=== PATIENT | male | born 1960 | race Caucasian/White ===

== ENCOUNTER 2023-02-16 15:00 | Emergency (ER) | payer OTHER ==
[~2023-02-16] VITALS: Ht 177.8 cm; Wt 92.5 kg
[~2023-02-16 15:00] MED LIST: DIABETES MED; HTN MED; HYDACE5 PO; METF500 PO; [UNRECOGNIZED DRUG - REMARK]; [UNRECOGNIZED DRUG - REMARK]; [UNRECOGNIZED DRUG - REMARK]
[2023-02-16] MEDS ORDERED: Norco 10-325 T1 EACH PO (15:21)
[2023-02-16] MEDS ORDERED: DULOXETINE HCL60 M1 PO (15:22)
[2023-02-16] MEDS ORDERED: BASAGLAR K100 UNIT/3 SC (15:23)
[2023-02-16] MEDS ORDERED: ATORVASTATIN CA20 MG PO (15:24)
[2023-02-16] MEDS ORDERED: JARDIANCE25 MG PO (15:24)
[2023-02-16] MEDS ORDERED: NOVOLOG FL100 UNIT/3 SC (16:13)
[2023-02-16] MEDS ORDERED: NEURONTIN300 MG PO (16:14)
[2023-02-16] MEDS ORDERED: FAMO20 PO (16:15)
[2023-02-16] MEDS ORDERED: PANTOPRAZOLE SO40 M2 PO (16:15)
[2023-02-16] MEDS ORDERED: MULVITA PO (16:16)
[2023-02-16] MEDS ORDERED: LISI20 PO (16:16)
[2023-02-16] MEDS ORDERED: DOCU100 PO (16:18)
[2023-02-16] MEDS ORDERED: FLUTICASONE PRO16 GM (16:19)
[2023-02-16] MEDS ORDERED: ZYRTEC10 M2 PO (16:19)
[2023-02-16] MEDS ORDERED: TAMSULOSIN HCL0.4 M1 PO (16:20)
[2023-02-16 16:23] LABS: BASOPHILS ABSOLUTE AUTO 0.02 K/mm3 (0.00-0.23); BASOPHILS PERCENT AUTO 0 % (0-2); EOSINOPHILS PERCENT AUTO 0 % (0-6); Hematocrit 45.3 % (37.0-53.0); Hemoglobin 15.3 g/dL (13.5-17.5); IMMATURE GRAN ABSOLUTE AUTO 0.07 K/mm3 (0.00-0.10); IMMATURE GRAN PERCENT AUTO 1 % (0-1); LYMPHOCYTES PERCENT AUTO 3 % (21-46); MONOCYTES ABSOLUTE AUTO 0.61 K/mm3 (0.16-1.47); MONOCYTES PERCENT AUTO 5 % (4-13); Mean Corpuscular HGB Conc 33.8 g/dL (31.5-36.5); Mean Corpuscular Volume 86 fL (80-100); Mean Platelet Volume 9.8 fL (9.1-12.4); NEUTROPHILS ABSOLUTE AUTO 11.65 K/mm3 (1.96-9.15); NEUTROPHILS PERCENT AUTO 91 % (41-73); Platelet Count 259 K/mm3 (150-400); RDW Coefficient Variation 12.6 % (11.7-14.2); RDW Standard Deviation 39.5 fL (35.1-46.3); Red Blood Cell Count 5.27 M/mm3 (4.30-5.90); White Blood Cell Count 12.75 K/mm3 (4.00-11.30)
[2023-02-16 16:51] LABS: Albumin, Blood 3.6 g/dL (3.4-5.0); Albumin/Globulin Ratio 1.1 (0.8-1.8); Bilirubin, Total 0.8 mg/dL (0.1-1.0); Bun/Creatinine Ratio 27.3 (12.0-20.0); Calcium, Blood 8.4 mg/dL (8.5-10.1); Creatinine, Blood 1.43 mg/dL (0.60-1.20); Globulin, Blood 3.3 g/dL (2.2-4.0); Potassium, Blood 4.4 mmol/L (3.5-5.5); Total Protein, Blood 6.9 g/dL (6.4-8.2)
[2023-02-16 17:30] VITALS: BP 118/96
== END 2023-02-16 17:57 | disposition home or self-care (01) ==
LOC: ER 15:00
PROVIDERS: Emergency Medicine
DX: Z51.11 Encounter for antineoplastic chemotherapy (principal); R07.9 Chest pain, unspecified; C85.90 Non-Hodgkin lymphoma, unspecified, unspecified site; Z88.8 Allergy status to other drugs, medicaments and biological substances; Z79.4 Long term (current) use of insulin; Z79.899 Other long term (current) drug therapy; E11.9 Type 2 diabetes mellitus without complications; I10 Essential (primary) hypertension; K21.9 Gastro-esophageal reflux disease without esophagitis; Z98.890 Other specified postprocedural states
CPT/HCPCS: 71045; 80053; 84484; 85025; 93005; 93010; 96361; 96374; 99285-25; J2405; J7030

== ENCOUNTER 2023-05-06 13:46 | Emergency (ER) | payer OTHER ==
[~2023-05-06] VITALS: Ht 177.8 cm; Wt 83.9 kg
[~2023-05-06 13:46] MED LIST changes: +ATORVASTATIN CA20 MG PO; +BASAGLAR K100 UNIT/3 SC; +DOCU100 PO; +DULOXETINE HCL60 M1 PO; +FAMO20 PO; +FLUTICASONE PRO16 GM; +JARDIANCE25 MG PO; +LISI20 PO; +MULVITA PO; +NEURONTIN300 MG PO; +NOVOLOG FL100 UNIT/3 SC; +Norco 10-325 T1 EACH PO; +PANTOPRAZOLE SO40 M2 PO; +TAMSULOSIN HCL0.4 M1 PO; +ZYRTEC10 M2 PO
[2023-05-06 14:18] LABS: BASOPHILS ABSOLUTE AUTO 0.04 K/mm3 (0.00-0.23); BASOPHILS PERCENT AUTO 1 % (0-2); EOSINOPHILS PERCENT AUTO 2 % (0-6); Hematocrit 43.4 % (37.0-53.0); Hemoglobin 14.9 g/dL (13.5-17.5); IMMATURE GRAN ABSOLUTE AUTO 0.05 K/mm3 (0.00-0.10); IMMATURE GRAN PERCENT AUTO 1 % (0-1); LYMPHOCYTES ABSOLUTE AUTO 1.02 K/mm3 (0.84-5.20); LYMPHOCYTES PERCENT AUTO 22 % (21-46); MONOCYTES ABSOLUTE AUTO 0.55 K/mm3 (0.16-1.47); MONOCYTES PERCENT AUTO 12 % (4-13); Mean Corpuscular HGB 28.9 pg (26.0-34.0); Mean Corpuscular HGB Conc 34.3 g/dL (31.5-36.5); Mean Corpuscular Volume 84 fL (80-100); Mean Platelet Volume 9.2 fL (9.1-12.4); NEUTROPHILS ABSOLUTE AUTO 2.97 K/mm3 (1.96-9.15); NEUTROPHILS PERCENT AUTO 63 % (41-73); Platelet Count 245 K/mm3 (150-400); RDW Coefficient Variation 12.8 % (11.7-14.2); RDW Standard Deviation 39.4 fL (35.1-46.3); Red Blood Cell Count 5.15 M/mm3 (4.30-5.90); White Blood Cell Count 4.73 K/mm3 (4.00-11.30)
[2023-05-06 14:36] LABS: Albumin, Blood 3.6 g/dL (3.4-5.0); Albumin/Globulin Ratio 0.9 (0.8-1.8); Bilirubin, Total 0.8 mg/dL (0.1-1.0); Bun/Creatinine Ratio 15.9 (12.0-20.0); Calcium, Blood 9.3 mg/dL (8.5-10.1); Creatinine, Blood 0.88 mg/dL (0.60-1.20); Globulin, Blood 3.9 g/dL (2.2-4.0); Potassium, Blood 4.6 mmol/L (3.5-5.5); Total Protein, Blood 7.5 g/dL (6.4-8.2)
[2023-05-06 19:45] VITALS: BP 121/85
[2023-05-06 20:18] LABS: Source, Urine Clean Catch
[2023-05-06 20:23] LABS: Bilirubin, Urine Neg (Neg); Blood, Urine Neg (Neg); Glucose Qualitative, Urine 2+ (Neg); Ketones, Urine 3+ (Neg); Leukocyte Esterase, Urine Neg (Neg); Nitrite, Urine Neg (Neg); Protein, Urine 1+ (Neg); Urobilinogen, Urine NORM (Normal)
[2023-05-06 20:33] LABS: Appearance, Urine Clear (Clear); Color, Urine Yellow (P-Yellow)
[2023-05-06] MEDS ORDERED: ONDA4 PO (23:30)
[2023-05-06] MEDS ORDERED: MECL25 PO (23:30)
[2023-05-24] MEDS ORDERED: Norco 10-325 T1 EACH PO (20:50)
[2023-05-24] MEDS ORDERED: PRED FORTE5 ML RIGHTEYE (20:52)
[2023-05-31] MEDS ORDERED: AMOCLA875 PO (13:49)
[2023-05-31] MEDS ORDERED: VALA500 PO (13:50)
[2023-05-31] MEDS ORDERED: DRON5 PO (13:50)
== END 2023-05-06 23:45 | disposition home or self-care (01) ==
LOC: ER 13:46
PROVIDERS: Student in an Organized Health Care Education/Training Program
DX: R42 Dizziness and giddiness (principal); R11.2 Nausea with vomiting, unspecified; C85.90 Non-Hodgkin lymphoma, unspecified, unspecified site; Z88.8 Allergy status to other drugs, medicaments and biological substances; Z79.899 Other long term (current) drug therapy; Z79.4 Long term (current) use of insulin; Z79.891 Long term (current) use of opiate analgesic; E11.9 Type 2 diabetes mellitus without complications; I10 Essential (primary) hypertension; K21.9 Gastro-esophageal reflux disease without esophagitis
CPT/HCPCS: 70450; 70496; 70498; 80053; 83690; 85025; 93005; 93010; 96374; 99285-25; A9270; J2765; Q9967

== ENCOUNTER → 2023-05-09 | Outpatient (CLI) | payer OTHER ==
[~2023-05-09] MED LIST changes: +MECL25 PO; +ONDA4 PO
[2023-05-09 12:02] LABS: BASOPHILS ABSOLUTE AUTO 0.05 K/mm3 (0.00-0.23); BASOPHILS PERCENT AUTO 1 % (0-2); EOSINOPHILS ABSOLUTE AUTO 0.14 K/mm3 (0.00-0.68); EOSINOPHILS PERCENT AUTO 3 % (0-6); Hemoglobin 14.5 g/dL (13.5-17.5); IMMATURE GRAN PERCENT AUTO 2 % (0-1); LYMPHOCYTES ABSOLUTE AUTO 0.56 K/mm3 (0.84-5.20); LYMPHOCYTES PERCENT AUTO 12 % (21-46); MONOCYTES ABSOLUTE AUTO 0.52 K/mm3 (0.16-1.47); MONOCYTES PERCENT AUTO 12 % (4-13); Mean Corpuscular HGB 28.7 pg (26.0-34.0); Mean Corpuscular HGB Conc 34.5 g/dL (31.5-36.5); Mean Corpuscular Volume 83 fL (80-100); NEUTROPHILS ABSOLUTE AUTO 3.16 K/mm3 (1.96-9.15); NEUTROPHILS PERCENT AUTO 70 % (41-73); Platelet Count 318 K/mm3 (150-400); RDW Coefficient Variation 12.6 % (11.7-14.2); RDW Standard Deviation 38.1 fL (35.1-46.3); Red Blood Cell Count 5.06 M/mm3 (4.30-5.90); White Blood Cell Count 4.53 K/mm3 (4.00-11.30)
[2023-05-09 13:52] LABS: Albumin, Blood 3.4 g/dL (3.4-5.0); Bilirubin, Total 0.5 mg/dL (0.1-1.0); Bun/Creatinine Ratio 17.1 (12.0-20.0); Calcium, Blood 9.3 mg/dL (8.5-10.1); Creatinine, Blood 1.05 mg/dL (0.60-1.20); Globulin, Blood 3.4 g/dL (2.2-4.0); Total Protein, Blood 6.8 g/dL (6.4-8.2)
== END ==
LOC: LAB 11:38 → LAB SHORT 11:38
PROVIDERS: Internal Medicine Hematology & Oncology
DX: C82.03 Follicular lymphoma grade I, intra-abdominal lymph nodes (principal); D48.3 Neoplasm of uncertain behavior of retroperitoneum
CPT/HCPCS: 80053; 85025

== ENCOUNTER 2023-05-24 14:20 | Inpatient (IN) | payer OTHER, BC ==
[~2023-05-24] VITALS: Ht 177.8 cm; Wt 77.0 kg
[2023-05-24 15:01] LABS: Hemoglobin 12.6 g/dL (13.5-17.5); Mean Corpuscular HGB 29.2 pg (26.0-34.0); Mean Corpuscular Volume 84 fL (80-100); Mean Platelet Volume 9.2 fL (9.1-12.4); Platelet Count 238 K/mm3 (150-400); RDW Coefficient Variation 12.9 % (11.7-14.2); Red Blood Cell Count 4.31 M/mm3 (4.30-5.90); White Blood Cell Count 3.78 K/mm3 (4.00-11.30)
[2023-05-24 15:10] LABS: Albumin, Blood 3.3 g/dL (3.4-5.0); Albumin/Globulin Ratio 1.4 (0.8-1.8); Bilirubin, Total 0.8 mg/dL (0.1-1.0); Bun/Creatinine Ratio 16.7 (12.0-20.0); Calcium, Blood 8.5 mg/dL (8.5-10.1); Creatinine, Blood 1.02 mg/dL (0.60-1.20); Globulin, Blood 2.4 g/dL (2.2-4.0); Magnesium, Blood 1.8 mg/dL (1.6-2.4); Potassium, Blood 4.1 mmol/L (3.5-5.5); Total Protein, Blood 5.7 g/dL (6.4-8.2)
[2023-05-24 15:44] LABS: BAND PERCENT MAN 12 % (0-8); BASOPHILS PERCENT MAN 0 % (0-2); EOSINOPHILS ABSOLUTE MAN 0.03 K/mm3 (0.00-0.68); EOSINOPHILS PERCENT MAN 1 % (0-6); LYMPHOCYTES ABSOLUTE MAN 0.26 K/mm3 (0.84-5.20); LYMPHOCYTES PERCENT MAN 7 % (21-46); MONOCYTES ABSOLUTE MAN 0.22 K/mm3 (0.16-1.47); MONOCYTES PERCENT MAN 6 % (4-13); MYELOCYTE ABSOLUTE MAN 0.03 K/mm3 (0.00-0.00); MYELOCYTE PERCENT MAN 1 % (0-0); NEUTROPHILS ABSOLUTE MAN 3.21 K/mm3 (1.96-9.15); SEG NEUTROPHILS PERCENT MAN 73 % (41-73); TOTAL CELLS COUNTED 100
[2023-05-24 15:45] LABS: Influenza A, PCR NEGATIVE (NEGATIVE); Influenza B, PCR NEGATIVE (NEGATIVE); Resp Syncytial Virus, PCR NEGATIVE (NEGATIVE); SARS-Cov-2 (COVID-19) PCR, MMC NEGATIVE (NEGATIVE)
[2023-05-24] MEDS ORDERED: Norco 10-325 T1 EACH PO ×2 (20:50)
[2023-05-24 20:52] VITALS: BP 103/67
[2023-05-24] MEDS ORDERED: PRED FORTE5 ML RIGHTEYE ×2 (20:52)
[2023-05-25 02:21] VITALS: BP 114/63
--- NOTE | 2023-05-25 04:47 | NUR ---
REPORT RECEIVED FROM ER AND THE VERIFIED A/O ANXIOUS PT WITH A HX OF FALLS. PT STATES HE WILL CALL AND NOT GET UP UNLESS WE ARE THERE, PT CONCERNED OF FALLING AND HAS A LOT INJURIES TO BODY. SO FAR VSS AND PT HASNT HAD ANY DIZZINESS, AMBULATES WITH MINIMAL ASSISTENCE AND HAS CALLED APPROPRIATLY. WILL CONT TO MONITOR
[2023-05-25 05:04] LABS: Hemoglobin 12.7 g/dL (13.5-17.5); Mean Corpuscular HGB 29.4 pg (26.0-34.0); Mean Corpuscular HGB Conc 34.3 g/dL (31.5-36.5); Mean Corpuscular Volume 86 fL (80-100); Mean Platelet Volume 9.4 fL (9.1-12.4); Platelet Count 208 K/mm3 (150-400); RDW Standard Deviation 40.2 fL (35.1-46.3); Red Blood Cell Count 4.32 M/mm3 (4.30-5.90); White Blood Cell Count 3.01 K/mm3 (4.00-11.30)
[2023-05-25 05:23] LABS: Bun/Creatinine Ratio 14.5 (12.0-20.0); Calcium, Blood 8.1 mg/dL (8.5-10.1); Creatinine, Blood 0.83 mg/dL (0.60-1.20)
[2023-05-25 05:55] LABS: BAND PERCENT MAN 1 % (0-8); BASOPHILS PERCENT MAN 0 % (0-2); EOSINOPHILS PERCENT MAN 0 % (0-6); LYMPHOCYTES PERCENT MAN 10 % (21-46); MONOCYTES ABSOLUTE MAN 0.39 K/mm3 (0.16-1.47); MONOCYTES PERCENT MAN 13 % (4-13); NEUTROPHILS ABSOLUTE MAN 2.31 K/mm3 (1.96-9.15); SEG NEUTROPHILS PERCENT MAN 76 % (41-73); TOTAL CELLS COUNTED 100
[2023-05-25 07:58] VITALS: BP 133/67
[2023-05-25 09:57] VITALS: BP 98/53
--- NOTE | 2023-05-25 15:11 | NUR ---
SHIFT SUMMARY PT FINALLY RESTING QUIETLY AT START OF SHIFT. ADMITTED FOR SYNCOPE WITH MULTIPLE FALLS AT HOME; PER REPORT, 25 IN PAST DAY OR SO. PT EASILY WOKE FOR CARE. SITTING UP TO EOB TO EAT BREAKFAST, BUT SPILLING IT ALL OVER FLOOR AND BED. LINENS AND GOWN CHANGED. PT LATER C/O FEELING WARM AND STARTED VOMITING; 300cc EMESIS. ZOFRAN GIVEN PER EMAR. DR ECHAVARRIA IN TO SEE PT PRIOR TO N/V EPISODE. ORTHO VS DONE; SEE CHART. PT/OT ORDERED AND ABLE TO AMBULATE IN HALLS WITHOUT DIFFICULTY. PT UP TO BTHRM SEVERAL TIMES TODAY WITH SBA FOR SAFETY. PT SITTING UP IN CHAIR AT BS WITH THERAPY, MARLA, BEFORE WANTING TO GO BACK TO BED. NO C/O PAIN. VSS, SEE CHART. IVF'S INFUSING PER EMAR. PT RESTING QUIETLY AT THIS TIME. CALL LT IN REACH. BED ALARM ON FOR SAFETY.
[2023-05-25 15:28] VITALS: BP 135/65
[2023-05-25 19:36] VITALS: BP 140/72
[2023-05-26] VITALS (9 sets, daily range): BP systolic 74–147; BP diastolic 51–82
--- NOTE | 2023-05-26 04:32 | NUR ---
SHIFT SUMMARY PT MUCH BETTER TODAY INDEPENDANT IN RM BUT STILL CALLS WHEN NEEDING TO STAND, PT UNDERSTANDS THERE IS A POSSIBILITY OF HIM FALLING BUT ITS UNLIKELY SINCE HE HAS BEEN HYDRATED WHILE HERE AND MONITORED FOR FALLS. PT STILL HAVING PAIN TO RIGHT EAR BUT DENIES WANTING OR NEEDING ANY PAIN MEDICATION. CONT TO MONITOR
--- NOTE | 2023-05-26 16:50 | NUR ---
SHIFT SUMMARY AMBULATING TO THE BATHROOM WITH SBA, NO SYNCOPAL EPISODES. ADVANCING WITH PHYSICAL THERAPY WELL PER NOTES. STATES HE WOULD LIKE TO RETURN HOME RATHER THAN TO REHAB. NO ACUTE EVENTS THIS SHIFT. WILL CONTINUE TO MONITOR
[2023-05-27] VITALS (11 sets, daily range): BP systolic 63–172; BP diastolic 45–85
--- NOTE | 2023-05-27 04:25 | NUR ---
SHIFT SUMMARY NICKO IS ALERT AND FULLY ORIENTED AT THE START OF THE SHIFT. HE IS PLEASANT AND COOPERATIVE WITH CARE. HE HAD NO ACUTE CHANGES OVER NIGHT. HE COMPLAINS OF RIGHT EAR PAIN AND WAS MEDICATED PER EMAR. PT HAD NO OTHER COMPLAINTS AND HE WAS INDEPENDENT IN HIS ROOM. PT RESTING IN BED AT LOWEST POSITION, WITH THE CALL LIGHT IN REACH.
[2023-05-27 05:02] LABS: Hematocrit 35.3 % (37.0-53.0); Hemoglobin 12.3 g/dL (13.5-17.5); Mean Corpuscular HGB Conc 34.8 g/dL (31.5-36.5); Mean Corpuscular Volume 83 fL (80-100); Mean Platelet Volume 9.2 fL (9.1-12.4); Platelet Count 215 K/mm3 (150-400); RDW Standard Deviation 39.1 fL (35.1-46.3); Red Blood Cell Count 4.24 M/mm3 (4.30-5.90); White Blood Cell Count 2.51 K/mm3 (4.00-11.30)
--- NOTE | 2023-05-27 05:23 | NUR ---
THIS GREASE AND TALLOW PUMPER HAS REVIEWED AND AGREES WITH ALL NOTES AND ASSESSMENTS BY HADLEY GIRON.
[2023-05-27 05:38] LABS: Calcium, Blood 8.6 mg/dL (8.5-10.1); Creatinine, Blood 0.71 mg/dL (0.60-1.20); Potassium, Blood 3.8 mmol/L (3.5-5.5)
--- NOTE | 2023-05-27 15:45 | NUR ---
PHYSICIAN CONTACT CALLED DR ECHAVARRIA REGARDING ORTHOSTATIC VITALS, ORDERED TO INCREASE RATE OF IV FLUIDS AND HOLD FLOMAX THIS PM. WILL CONTINUE TO MONITOR
--- NOTE | 2023-05-27 16:52 | NUR ---
SHIFT SUMMARY ORTHOSTATIC VITALS POSITIVE FOR CHANGES, SYMPTOMATIC, DOC AWARE. EPISODE OF DIARRHEA THIS SHIFT. POOR ORAL INTAKE, CHOKING ON FOOD AND PILLS IN AM, SPEECH CONSULT PLACED AND DIET DOWNGRADED. WILL CONTINUE TO MONITOR.
--- NOTE | 2023-05-27 23:08 | NUR ---
PT IS PLEASANT SITTING AT BEDSIDE A&O. PT HAS TELE IN PLACE NSR WITH NS@125 IN RIGHT AC, PT REPORTS RIGHT EAR PAIN 6/10 PRN GIVEN W/RELIEF, PT REPORTS SOME DIZZINESS WHEN CHANGING POSITIONS HAS +ORTHOSTATIC PRESSURES WITH ELEVATED HR THAT RESOLVES AT REST. PT AMBULATES W/ STANDBY ASSIT. CALL DUDLEY WITHIN REACH WILL CONTINUE TO MONITOR.
[2023-05-28] VITALS (13 sets, daily range): BP systolic 65–181; BP diastolic 54–114
[2023-05-28 05:05] LABS: Hematocrit 34.7 % (37.0-53.0); Hemoglobin 12.2 g/dL (13.5-17.5); Mean Corpuscular HGB 29.1 pg (26.0-34.0); Mean Corpuscular HGB Conc 35.2 g/dL (31.5-36.5); Mean Corpuscular Volume 83 fL (80-100); Mean Platelet Volume 9.7 fL (9.1-12.4); Platelet Count 250 K/mm3 (150-400); RDW Coefficient Variation 12.9 % (11.7-14.2); RDW Standard Deviation 38.4 fL (35.1-46.3); Red Blood Cell Count 4.19 M/mm3 (4.30-5.90)
[2023-05-28 05:33] LABS: Bun/Creatinine Ratio 11.8 (12.0-20.0); Calcium, Blood 8.4 mg/dL (8.5-10.1); Creatinine, Blood 0.68 mg/dL (0.60-1.20); Potassium, Blood 3.4 mmol/L (3.5-5.5)
--- NOTE | 2023-05-28 17:57 | NUR ---
SHIFT SUMMARY A&OX4, COOPERATIVE WITH CARE, [facility]. PATIENT COMPLAINED OF 7/10 PAIN TO R EAR, MEDICATED WITH TYLENOL. DENIED ANY CP/PRESSURE, SOB, HEADACHE, OR DIZZINESS THIS SHIFT. IV PATENT WIH FLUIDS RUNNING AT 125MLS/HR. ORTHOSTATIC BP'S HAVE SUBSTANTIAL SBP CHANGE. ENCOURAGING ORAL INTAKE TO INCREASE SBP. [facility] SOFT DIET, NO STRAWS, PILLS ON AT A TIME WITH APPLESAUCE. SBA WITH AMBULATION TO BATHROOM. PATIENT NOW RECEIVING MARINOL TO HELP WITH APPETITE AND NAUSEA. CURRENTLY UP FOR DINNER. CALL LIGHT WITHIN REACH.
[2023-05-29] VITALS (14 sets, daily range): BP systolic 68–175; BP diastolic 47–93
[2023-05-29 05:16] LABS: Hematocrit 34.5 % (37.0-53.0); Hemoglobin 12.1 g/dL (13.5-17.5); Mean Corpuscular HGB 29.4 pg (26.0-34.0); Mean Corpuscular HGB Conc 35.1 g/dL (31.5-36.5); Mean Corpuscular Volume 84 fL (80-100); Mean Platelet Volume 9.7 fL (9.1-12.4); Platelet Count 212 K/mm3 (150-400); RDW Standard Deviation 39.3 fL (35.1-46.3); Red Blood Cell Count 4.11 M/mm3 (4.30-5.90)
--- NOTE | 2023-05-29 05:45 | NUR ---
ASSUMED CARE OF PT AT 0400. THIS RN AGREES TO ISA BOOKER'S ASSESSMENT FINDINGS. PT RECIEVED TYLENOL FOR TOLERABLE RELIEF OF R.EAR PAIN. HE REPORTS R.CHEEK ITCHING AND RASH OBSERVED. LOTION PROVIDED AND PT REPORTED IMPROVEMENT. ENT TO BE CONSULTED POSSIBLY OUTPATIENT. ORTHOS CONTINUE TO BE (+) T/O ENTIRETY OF SHIFT. SIGNIFICANT BP DROPS NOTED W/SBP 60'S-70'S UPON STANDING (130'S-160'S LYING) AND HR TACHS UP TO 1TEENS FROM 60'S-80'S. NS INFUSES AT 125 ML/HR. NO ACUTE CHANGES, WCTM AND REPORT TO DAY RN.
[2023-05-29 05:56] LABS: Albumin, Blood 2.9 g/dL (3.4-5.0); Albumin/Globulin Ratio 1.3 (0.8-1.8); Bilirubin, Total 0.3 mg/dL (0.1-1.0); Calcium, Blood 8.2 mg/dL (8.5-10.1); Creatinine, Blood 0.6 mg/dL (0.60-1.20); Globulin, Blood 2.3 g/dL (2.2-4.0); Potassium, Blood 3.3 mmol/L (3.5-5.5); Total Protein, Blood 5.2 g/dL (6.4-8.2)
[2023-05-29 06:07] LABS: BASOPHILS ABSOLUTE MAN 0.05 K/mm3 (0.00-0.23); BASOPHILS PERCENT MAN 2 % (0-2); EOSINOPHILS ABSOLUTE MAN 0.02 K/mm3 (0.00-0.68); EOSINOPHILS PERCENT MAN 1 % (0-6); LYMPHOCYTES ABSOLUTE MAN 0.25 K/mm3 (0.84-5.20); LYMPHOCYTES PERCENT MAN 10 % (21-46); METAMYELOCYTE ABSOLUTE MAN 0.02 K/mm3 (0.00-0.00); METAMYELOCYTE PERCENT MAN 1 % (0-0); MONOCYTES ABSOLUTE MAN 0.25 K/mm3 (0.16-1.47); MONOCYTES PERCENT MAN 10 % (4-13); SEG NEUTROPHILS PERCENT MAN 76 % (41-73); TOTAL CELLS COUNTED 100
--- NOTE | 2023-05-29 15:35 | NUR ---
Brief supportive visit this afternoon. Pt resting in bed upon arrival receiving orthostatic B/P check by JOSE Del Castillo. Pt reports 5/10 pain in his ear. He reports pain worsens at night when air is more cool. Offered suggestions to assist with warms such as turning the thermostat up at night or warm compress if appropriate. Listened as Pt reports being and living at home with his . He reports no children. Pt reports plan to continue chemo therapy once infection has resolved. He reports losing his appetite shortly after chemo therapy and started having falls a week or two after losing his appetite. Pt reports the Marinol may be helping as he had more PO intake at lunch today. Continued supportive visit. Palliative Care will remain available
--- NOTE | 2023-05-29 16:13 | NUR ---
SHIFT SUMMARY PATIENT A&OX4, COOPERATIVE WITH CARE, FLAT AFFECT. COMPLAINED OF PAIN TO R EAR AND CHEEK. DR. JONES ATTEMPTED TO IRRIGATE THE EAR TO TRY AND REMOVE A PLUG OF DRAINAGE, BUT NOT MUCH WAS REMOVED PER HER REPORT. PATIENT DENIED HEADACHE, CP, DIZZINESS, OR SOB. APPETITE POOR. COMPLAINED OF N/V AFTER TRYING TO EAT, MEDICATED WITH ZOFRAN. PATIENT IS ALSO RECEIVING MARINOL. ORTHOSTATIC HYPOTENSION CONINUES. PARAMETERS OBTAINED FOR MIDODRINE - HOLD FOR SBP>90 WHEN SITTING OR STANDING. PALLIATIVE CARE TO HELP WITH ADVANCED CARE PLANNING. SPOKE WITH SEBASTIAN. NO ACUTE CHANGES THIS SHIFT. PATIENT IS CURRENLTY RESTING IN BED WITH CALL LIGHT IN REACH.
--- NOTE | 2023-05-29 18:24 | NUR ---
ASSUMED CARE OF PT, NO ACUTE CHANGES OCCURED DURING CARE. PT MAINTAINED A POSITION OF SAFETY WITH BED IN LOWEST POSITION AND LOCKED WITH CALL LIGHT WITHIN REACH.
--- NOTE | 2023-05-29 18:33 | NUR ---
THIS COURTROOM REPORTER HAS REVIEWED AND AGREES WITH NOTES AND EMAR DONE BY HADLEY HAIDER.
[2023-05-30] VITALS (13 sets, daily range): BP systolic 81–160; BP diastolic 55–90
--- NOTE | 2023-05-30 02:46 | NUR ---
A/O PT WITH FLAT AFFECT, COOPERATIVE AND CALLS WHEN NEEDING ASSISTENCE. HELP AMBULATE TO BATHROOM SEVERAL TIMES, PT SHOWED NO INSTABILITY OR RISK OF FALLING, WILL CONT TO MONITOR.
[2023-05-30 06:45] LABS: Bun/Creatinine Ratio 5.8 (12.0-20.0); Calcium, Blood 8.5 mg/dL (8.5-10.1); Creatinine, Blood 0.69 mg/dL (0.60-1.20); Potassium, Blood 3.4 mmol/L (3.5-5.5)
--- NOTE | 2023-05-30 14:06 | NUR ---
Pt sitting on edge of bed upon arrival with IMAGING SERVICES DIRECTOR recording orthostatic B/P. Pt reports 5/10 pain in his ear. Pt reports current pain regimen is managing his pain. Pt and IMAGING SERVICES DIRECTOR Magdalene reports Pt's appetite is poor today, taking in only 1 ensure shake and small sips of juice for the entire day. Pt not eating his meals. Pt's spouse Kelsie arrives to bedside. Discussed concerns regarding Pt's appetite. Kelsie reports Pt has had this issue in the past and was not strong enough to continue chemo. She reports Pt's drinks strawberry flavored pedialyte and like strawberry flavored items. Continued therapeutic visit. Pt agreeable for appetite stimulant adjustment to assist with appetite if appropriate. Spoke with Dr Horta and discussed case. Placed order for Marinol 5 mg PO BIDAC, D/C Marinol 2.5 mg Per V/O from Dr Horta. Placed Dietitian order to assist with nutrition. Palliative Care will remain available
[2023-05-31 03:44] VITALS: BP 133/70
--- NOTE | 2023-05-31 03:46 | NUR ---
SHIFT SUMMARY: PT IS ALERT AND ORIENTED. PT IS A STANDBY ASSIST WITH FWW. PT IS CALM AND COOPERATIVE WITH CARE. PT CALLS APPROPRIATELY. PT REPORTS PAIN IN HIS R. EAR, GAVE PRN NORCO. PT DENIES NAUSEA, VOMITING, AND SOB. PT SLEPT MUCH OF THE NIGHT WHEN NOT DISTURBED. NO ACUTE CHANGES OR COMPLICATIONS OVERNIGHT. BED IN LOW POSITION, CALL LIGHT WITHIN REACH. WILL REPORT TO DAY NURSE.
[2023-05-31 07:27] VITALS: BP 151/82
[2023-05-31 13:12] VITALS: BP 152/78
[2023-05-31] MEDS ORDERED: AMOCLA875 PO ×2 (13:49)
[2023-05-31] MEDS ORDERED: VALA500 PO ×2 (13:50)
[2023-05-31] MEDS ORDERED: DRON5 PO ×2 (13:50)
--- NOTE | 2023-05-31 14:22 | NUR ---
DISCHARGE HOME PT ESCORTED OUT VIA W/C ACCOMPANIED BY PROJECT SAFETY MANAGER. IV REMOVED WITH CANNULA INTACT. PRESSURE DRESSING APPLIED. REVIEWED DISCHARGE INSTRUCTIONS. ORDERS [facility]XED TO [facility] PER REQUEST. CONTINUE POC.
== END 2023-05-31 15:57 | disposition home health service (06) | DRG 312 ==
LOC: ER 14:20 → MEDS 14:21 → ENPENDDIS 05-31 15:51 → MEDS 05-31 15:57
PROVIDERS: Hospitalist; Internal Medicine; Nurse Practitioner Acute Care; Student in an Organized Health Care Education/Training Program; ADMIT Internal Medicine
DX: I95.1 Orthostatic hypotension (principal); C85.90 Non-Hodgkin lymphoma, unspecified, unspecified site; B02.8 Zoster with other complications; Z20.822 Contact with and (suspected) exposure to COVID-19; H60.91 Unspecified otitis externa, right ear; H83.01 Labyrinthitis, right ear; E86.0 Dehydration; R29.6 Repeated falls; R13.10 Dysphagia, unspecified; I10 Essential (primary) hypertension; D72.819 Decreased white blood cell count, unspecified; D64.9 Anemia, unspecified; N40.0 Benign prostatic hyperplasia without lower urinary tract symptoms; F32.A Depression, unspecified; E78.5 Hyperlipidemia, unspecified; K21.9 Gastro-esophageal reflux disease without esophagitis; G51.0 Bell's palsy; E11.42 Type 2 diabetes mellitus with diabetic polyneuropathy; Z88.8 Allergy status to other drugs, medicaments and biological substances; Z79.4 Long term (current) use of insulin; Z79.891 Long term (current) use of opiate analgesic; Z79.899 Other long term (current) drug therapy; Z98.890 Other specified postprocedural states
CPT/HCPCS: 0241U; 36415; 70450; 70486; 71046; 72125; 74230; 80048; 80053; 82947; 83735; 83880; 84484; 85025; 85027; 92526; 92610; 92611; 93005; 93010; 96360; 96361; 97110; 97116; 97162; 97165; 97530; 97535; 99285-25; A9270; J1650; J1815; J2405; J7030; Q0167

== ENCOUNTER 2023-08-29 14:30 | Day surgery (SDC) | payer OTHER ==
[~2023-08-29] VITALS: Ht 177.8 cm; Wt 80.0 kg
[~2023-08-29 14:30] MED LIST changes: +AMOCLA875 PO; +ATOR20 PO; -ATORVASTATIN CA20 MG PO; +DRON5 PO; +DULO60; -DULOXETINE HCL60 M1 PO; +Diflucan100 MG; +Durezol5 ML; +FLONASE ALLERG9.9 M2; -FLUTICASONE PRO16 GM; +GABA300; -LISI20 PO; +MELO7.5; +MUPIROCIN1 G1; -NEURONTIN300 MG PO; +NORVASC10 MG; +Ondansetron Odt8 MG; +PRED FORTE5 ML RIGHTEYE; +PRED20 PO; +TRAM50; +VALA500 PO; +Xylocaine5 M1; +ZESTRIL40 M1 PO
[2023-08-29 16:48] VITALS: BP 148/79
== END 2023-08-29 17:04 | disposition home or self-care (01) ==
LOC: ORSCSDS 14:30
PROVIDERS: Ophthalmology
PROC: 08RK3JZ Replacement of Left Lens with Synthetic Substitute, Percutaneous Approach (ICD-10-PCS; principal; 2023-08-29 16:00)
DX: E11.36 Type 2 diabetes mellitus with diabetic cataract (principal); H25.12 Age-related nuclear cataract, left eye; I10 Essential (primary) hypertension; K21.9 Gastro-esophageal reflux disease without esophagitis; Z79.4 Long term (current) use of insulin; Z79.899 Other long term (current) drug therapy
CPT/HCPCS: 82947; A9270; J2250; J3010; J3301; J7040; V2632

== ENCOUNTER → 2024-03-04 | Outpatient (CLI) | payer OTHER ==
[~2024-03-04] MED LIST changes: +Diflucan100 MG PO; +GABA300 PO; +GLIP5 PO; +LANTUS SOL100 UNIT/1; +LIDOCAINE VISCOUS PO; +MUPIROCIN2210; +ONDA8 PO
[2024-03-04 11:46] LABS: BASOPHILS ABSOLUTE AUTO 0.03 K/mm3 (0.00-0.23); BASOPHILS PERCENT AUTO 1 % (0-2); EOSINOPHILS ABSOLUTE AUTO 0.43 K/mm3 (0.00-0.68); EOSINOPHILS PERCENT AUTO 10 % (0-6); Hematocrit 39.2 % (37.0-53.0); Hemoglobin 12.8 g/dL (13.5-17.5); IMMATURE GRAN ABSOLUTE AUTO 0.05 K/mm3 (0.00-0.10); IMMATURE GRAN PERCENT AUTO 1 % (0-1); LYMPHOCYTES ABSOLUTE AUTO 0.51 K/mm3 (0.84-5.20); LYMPHOCYTES PERCENT AUTO 11 % (21-46); MONOCYTES ABSOLUTE AUTO 0.49 K/mm3 (0.16-1.47); MONOCYTES PERCENT AUTO 11 % (4-13); Mean Corpuscular HGB 27.3 pg (26.0-34.0); Mean Corpuscular HGB Conc 32.7 g/dL (31.5-36.5); Mean Corpuscular Volume 84 fL (80-100); Mean Platelet Volume 9.3 fL (9.1-12.4); NEUTROPHILS ABSOLUTE AUTO 3.01 K/mm3 (1.96-9.15); NEUTROPHILS PERCENT AUTO 67 % (41-73); Platelet Count 199 K/mm3 (150-400); RDW Coefficient Variation 13.4 % (11.7-14.2); Red Blood Cell Count 4.69 M/mm3 (4.30-5.90); White Blood Cell Count 4.52 K/mm3 (4.00-11.30)
[2024-03-04 12:03] LABS: Albumin, Blood 3.1 g/dL (3.4-5.0); Albumin/Globulin Ratio 1.2 (0.8-1.8); Bilirubin, Total 0.7 mg/dL (0.1-1.0); Bun/Creatinine Ratio 17.1 (12.0-20.0); Calcium, Blood 6.9 mg/dL (8.5-10.1); Creatinine, Blood 0.7 mg/dL (0.60-1.20); Globulin, Blood 2.6 g/dL (2.2-4.0); Potassium, Blood 4.1 mmol/L (3.5-5.5); Total Protein, Blood 5.7 g/dL (6.4-8.2)
== END ==
LOC: LAB SHORT 11:37 → LAB 11:37
PROVIDERS: Internal Medicine Hematology & Oncology
DX: C82.00 Follicular lymphoma grade I, unspecified site (principal); D48.3 Neoplasm of uncertain behavior of retroperitoneum
CPT/HCPCS: 80053; 85025